=== PATIENT | female | born 1965 | race Caucasian/White ===

== ENCOUNTER 2022-10-30 08:54 | Day surgery (SDC) | payer OTHER ==
[2022-10-30] MEDS ORDERED: Depo-Medrol 40 MG/ML IM ONE (08:55)
[2022-10-30] MEDS ORDERED: BUPIVACAINE 0.5% VIAL IJ ONE (08:55)
[2022-10-30] MEDS ORDERED: Lactated Ringers 1,000 ML IV ONE (10:52)
[2022-10-30] MEDS ORDERED: DIPRIVAN 200 MG/20 ML IV ONE (10:52)
[2022-10-30] MEDS ORDERED: Ketamine HCl 50 MG/ML ONE (10:58)
--- NOTE | 2022-10-30 12:20 | XRAY ---
Indication: Bilateral SI joint injection. Intraoperative fluoroscopy provided for 26 seconds. 5 digital spot images submitted for interpretation demonstrates posterior needle tip projecting over the left and right SI joint. Correlate with intraoperative findings/report.
--- NOTE | 2022-10-30 13:51 | XRAY ---
26 seconds of fluoroscopy was used in surgery for a bilateral sacroiliac joint injection.
== END 2022-10-30 11:22 | disposition home or self-care (01) ==
LOC: SDC-PAIN 08:54
PROVIDERS: ATTEND Psychiatry & Neurology Pain Medicine
DX: M46.1 Sacroiliitis, not elsewhere classified (principal); Z79.899 Other long term (current) drug therapy
CPT/HCPCS: 01992; 27096; 72202; 77002; G0260; J1030; J2704